=== PATIENT | male | born 1945 | race American Indian/Alaskan Native ===

== ENCOUNTER 2016-11-30 14:27 | Outpatient (CLI) | payer MEDICARE ==
--- NOTE | 2016-12-01 09:14 | Magnetic Resonance Report ---
MRI LUMBAR SPINE WITH AND WITHOUT CONTRAST HISTORY: Back pain, prostate cancer. TECHNIQUE: axial T1, T2. sagittal T1,T2, STIR. Post contrast T1 fat-sat imaging in sagittal and axial planes. COMPARISON: CT abdomen pelvis dated 01/09/15. Bone scan dated 10/01/14. FINDINGS: The conus terminates at L1. No signal abnormality or mass. The cauda equina is within normal limits. No central canal stenosis. There are multiple abnormal bony lesions within L2, L3, L4, L5, right sacrum, and bilateral posterior iliac bones. The L2 lesion measures 1.8 cm in diameter. L3 and L5 lesions measure up to 1 cm. There is diffuse involvement of the L4 vertebral body. There is a large lesion in the right side of the sacrum measuring up to 6 x 3 cm in axial plane. Lesions are also identified in both posterior iliac bones which measure up to 2 cm. These bony lesions are decreased signal on T1 and T2 and demonstrate minimal enhancement on the postcontrast images. These are consistent with metastatic lesions from prostate cancer. There is no evidence for pathologic fracture. The paraspinal soft tissues are unremarkable. No retroperitoneal adenopathy is appreciated. The discs are desiccated and narrowed. There are mild diffuse degenerative changes in the facet joints with L4-5 being the most affected level. L1-2: No significant abnormality. L2-3: No significant abnormality. L3-4: There is a moderate diffuse posterior bulging disc, mild facet arthropathy and mild hypertrophy of ligamentum flavum. There is mild to moderate central canal narrowing measuring 8.1 mm in AP dimension. Moderate to severe bilateral neural foraminal narrowing is identified measuring up to 75%. The right side appears slightly more affected. L4-5: Moderate diffuse posterior bulging disc lateralizes to the right side. Moderate facet hypertrophy and thickening of the ligamentum flavum. There is mild to moderate central canal narrowing measuring 8 mm in AP dimension. There is severe right neural foraminal narrowing estimated at 75% and moderate left neural foraminal narrowing estimated at 50%. There is 3 mm anterolisthesis of L4 with respect to L5 which appears to be secondary to degenerative facet arthropathy. L5-S1: A moderate diffuse posterior bulging disc is identified mild bilateral facet arthropathy. There is moderate to severe bilateral neural foraminal narrowing measuring at 75%. IMPRESSION: Multiple bony lesions are identified as described above consistent with metastatic prostate cancer. There has been no overwhelming change in these bony metastasis in see CT abdomen and pelvis dated 01/09/15. Perhaps minimal progression of disease is demonstrated. Moderate to severe multilevel lumbar spondylosis as outlined above. There is mild central canal narrowing at L3-4 and L4-5 and multilevel neural foraminal narrowing. No evidence for acute fracture.
== END 2016-11-30 14:28 | disposition home or self-care (01) ==
LOC: MRI 14:27
PROVIDERS: ATTEND Internal Medicine Hematology
DX: M47.896 Other spondylosis, lumbar region (principal); C61 Malignant neoplasm of prostate; M12.88 Other specific arthropathies, not elsewhere classified, other specified site; M24.28 Disorder of ligament, vertebrae
CPT/HCPCS: 72158; A9577

== ENCOUNTER 2017-04-22 10:58 | Outpatient (CLI) | payer MEDICARE ==
--- NOTE | 2017-04-27 11:19 | Vascular Lab Report ---
Left Lower Extremity Venous Duplex Study: Reason for Exam: Edema of the left lower extremity. Comments on the Right: A limited duplex study was done of the proximal veins of the right lower extremity. All veins visualized are freely compressible without evidence of internal echogenicity. Flow is spontaneous and phasic throughout. No evidence of acute or chronic thrombus is seen in any of the vessels visualized. Comments on the Left: All veins visualized are freely compressible without evidence of internal echogenicity. Flow is spontaneous and phasic throughout. No evidence of acute or chronic thrombus is seen in any of the vessels visualized. Impression: No evidence of acute or chronic deep venous thrombosis in the left lower extremity.
== END 2017-04-22 10:59 | disposition home or self-care (01) ==
LOC: SPVWC 10:58
PROVIDERS: ATTEND Internal Medicine Hematology
DX: R60.9 Edema, unspecified (principal); C61 Malignant neoplasm of prostate; I10 Essential (primary) hypertension

== ENCOUNTER 2017-04-29 15:43 | Outpatient (CLI) | payer MEDICARE ==
[2017-04-29 16:48] LABS: Blood Urea Nitrogen 12 mg/dL (9-20)
== END 2017-04-29 15:44 | disposition home or self-care (01) ==
LOC: MRI 15:43
PROVIDERS: ATTEND Internal Medicine Hematology
DX: C61 Malignant neoplasm of prostate (principal); M54.9 Dorsalgia, unspecified; M79.604 Pain in right leg; M79.605 Pain in left leg; R20.0 Anesthesia of skin
CPT/HCPCS: 36415; 82565; 84520